=== PATIENT | male | born 1935 | race Caucasian/White ===

== ENCOUNTER → 2016-08-14 | Outpatient (CLI) | payer MEDICARE, OTHER | LOC: RAD 08:27 | PROVIDERS: ATTEND Physician Assistant | DX: R07.9 Chest pain, unspecified (principal); R91.1 Solitary pulmonary nodule | CPT/HCPCS: 71250 ==

== ENCOUNTER → 2017-01-07 | Outpatient (CLI) | payer MEDICARE, OTHER ==
--- NOTE | 2017-01-07 10:03 | ST Modified Barium Swallow ---
Recommendation - Recommendations Recommendations: Recommend thin liquids and regular diet. Patient may modify to comfort level. Small sips of liquids recommended, no direct treatment indicated at this time. Should patient's dysphagia worsen, treatment may be beneficial at that time. Medical Diagnoses - Medical Diagnoses Medical Diagnosis Description & ICD-10 Code(s): R13.10 dysphagia Other Medical Diagnoses/Co-Morbidities: vocal fold paralysis, dysphagia, GERD ST Modified Barium Swallow - General Date: 01/07/17 Referring Physician: Dr. Triplett Risks/Precautions: Falls, Aspiration Date of Onset: 12/26/16 - approximate date Reason for Referral: coughing with PO - History History obtained from: Patient, Other - EMR reviewed -: Medical - Pt states first having swallowing difficulty approximately a year ago after spinal surgery. States that this improved, but is now noticing some difficulty. Specifically cited incident at a dentist office choking on water, however, he was reclined for the procedure. The patient also has a history of vocal fold paralysis and reflux with upper hernia per patient report. He has previously received speech therapy to address vocal fold function. He had a previous MBSS in August of 2015, recommendations at that time were for regular diet and thin liquids. Some penetration of thin liquids seen at that time. Medications: Per previous EMR: Aspirin, Cetirizine, Fexofenadine, Metformin, Lisinopril, Levemir, NovoLOG, Sertraline, Sotalol, Rabeprazole, Lipitor. Patient personally stated being on lisinopril and prilosec this day. Allergies: seasonal allergies. no other allergies reported. - Functional Status Prior Functional Status: INDEPENDENT: feeding - independent Current Functional Limitations: feeding - difficulty with solids - Subjective Patient/caregiver goal(s): safe swallow, r/o aspiration Cognitive-Linguistic Function: WNL Speech Intelligibility: Age appropriate Current Nutritional Means: PO Current PO diet: Regular - Patient does state he avoids meat and cereals Current symptoms: Coughing Pain: 0/5 - Objective Assessment: Upright, Left Lateral - Food Trials Used Food trials used: Thin liquids, Pureed, Regular The patient: Was Able to Self Feed, via cup - Oral-Motor Skills Dentition: Full Laryngeal Function: Volitional Cough, Throat Clear, Volitional Swallow Oral Motor Skills: WFL - Assessment Oral prep: Normal Labial closure: Adequate Leakage: None Mastication: Adequate Lingual Movement: Normal Oral stage: Normal for this Procedure - Pharyngeal Stage Initiation of Pharyngeal Stage Reflex: Delayed Reflex Delay Time (Seconds): 1 Reduced pressure generation: No reduced tongue-based retraction: No Pre-swallow pooling in valleculae: Mild - with thin liquid trials Pre-Swallow pooling in pyriforms: None Reduced Thyro-Hyoid approximation: Yes - mild Reduced epiglottic excursion: No Reduced pharyngeal peristalsis/contraction: No Multiple Swallows with: Cleared w/ Dry Swallow Post-swallow residulas vallecular: Mild - for puree texture Pharyngeal Stage Comments: Good swallow function seen for solid textures. Some difficulty with thin liquids , small amount of penetration seen just prior to and during the swallow with multiple trials. Chin tuck helped reduce this. - Fall Risk Assessment Medications/Conditions that increase fall risks include: Antidepressants, sedatives, anti-arrhythmic, diuretic, benzodiazipenes, neuroleptics. BP regulation problems, cardiac problems, balance or gait deficits, neurological problems. Is patient considered at risk for falls: yes - walks with cane Fall Risk Actions Taken: No action needed - Behavioral Observations During evaluation process patient: was pleasant, was cooperative, able to answer questions, provided medical history Mental Status: Alert & Oriented X3 - Treatment / Educational Needs: Treatment/Education Needs: Treatment consisted of patient education on the role of the Speech Pathologist. Patient's plan of care and golas were communicated as well as scheduling and attendance policies. Recommendations for initial home program were shared. Patient demonstrated understanding and verbalized agreement. - Impression/Summary Laryngeal Penetration: Yes, Flash, before swallow, during swallow Consistency: Thin Tracheal Aspiration: no Productive cough: Yes Effective compensatory strategies: chin tuck, chin down Patient presents with: Pharyngeal stage dysph., Mild-Moderate Risk of Aspiration: Mild Risk of nutritional compromise: Mild Risk due to: penetration of liquids Evaluation and Findings: Results this day are very similar to results from previous MBSS from 2016. This indicates no significant decrease in swallow function. Mild penetration seen for thin liquids, however, no aspiration seen, and penetration cleared easily. - Recommendations Solid diet recommendations: Regular Liquid Diet Modification: Thin Dysphagia therapy with HAND IRONER: no Recommended techniques: Fully Upright During Meal, Small Bites and Sips, Chin Tuck to Swallow Supervision: Independent Information, Precautions and Recommendations: Patient (Written), Patient (Verbal ) - Time Total Time: 40 - Plan of Care Patient to follow-up with referring physician: Yes Strategies to optimize patient understanding include:: ongoing assessment of educational needs, implementation of educational strategies, and re-education. - - -: Thank you for the opportunity to work with this patient and his/her family. Should you have any questions about this patient's plan or progress, I can be reached at [phone]. Charge G Code? - - -: Yes ST F.L. Impairment Category - Swallowing Current G8996: CI 1-19% Impaired Goal G8997: CI 1-19% Impaired Discharge G8998: CI 1-19% Impaired - Voice Current G9171: None Goal G9172: None Discharge G9173: None
--- NOTE | 2017-01-07 13:29 | RADIOLOGY REPORT (SQ) ---
EXAM DESCRIPTION: COOKIE SWALLOW COMPLETED DATE/TIME: 01/07/2017 8:37 am REASON FOR STUDY: DYSPHAGIA (R13.10) R13.10 DYSPHAGIA, UNSPECIFIED COMPARISON: 09/05/2015 TECHNIQUE: Videofluoroscopic swallowing examination was performed in conjunction with speech patholo gy. Videofluoroscopic imaging was obtained and reviewed and these are the findings: RADIATION DOSE: 1.2 minutes Limited fluoroscopic images saved to PACS. LIMITATIONS: None FINDINGS: The patient was brought into the fluoro room and placed upright on a modified barium swall ow chair. The patient was then given multiple consistencies mixed with barium to swallow under live fluoroscopic video guidance. Patient had laryngeal penetration without definite subglottic aspiratio n on thin liquids. Patient tolerated thick liquids, pudding consistency, and a cookie coated in very screw without difficulty. IMPRESSION: Laryngeal penetration with thin liquids. Patient tolerated thicker consistencies.PLEASE SEE SPEECH PATHOLOGIST REPORT FOR OTHER FINDINGS AND RECOMMENDATIONS. COMMENT: Quality ID 145: Final reports for procedures using fluoroscopy that document radiation exp osure indices, or exposure time and number of fluorographic images (if radiation exposure indices are not available) TECHNICAL DOCUMENTATION: JOB ID: [id number] [employer]- All Rights Reserved
== END ==
LOC: RAD 07:55
PROVIDERS: ATTEND Internal Medicine
DX: R13.10 Dysphagia, unspecified (principal)
CPT/HCPCS: 74230; 92611; G8996; G8997; G8998

== ENCOUNTER → 2017-01-08 | Outpatient (CLI) | payer MEDICARE, OTHER ==
--- NOTE | 2017-01-08 10:47 | RADIOLOGY REPORT (SQ) ---
EXAM DESCRIPTION: CT CHEST WITHOUT COMPLETED DATE/TIME: 01/08/2017 9:34 am REASON FOR STUDY: PULMONARY NODULE (R91.1) R91.1 SOLITARY PULMONARY NODULE COMPARISON: CT chest without contrast 08/14/2016 TECHNIQUE: CT scan performed of the chest without intravenous contrast. Images reviewed with lung, soft tissue and bone windows. Reconstructed coronal and sagittal MPR images reviewed. All images st ored on PACS. All CT scanners at this facility use dose modulation, iterative reconstruction, and/or weight based d osing when appropriate to reduce radiation dose to as low as reasonably achievable (ALARA). [facility]: Dose Right [facility]: CareDose [facility]: Dose Right [facility]: Teradose 4D [facility]: [employer] RADIATION DOSE: Up-to-date CT equipment and radiation dose reduction techniques were employed. CTDIv ol: 10.2 mGy. DLP: 362 mGy-cm. mGy. LIMITATIONS: No technical limitations. FINDINGS: LUNGS AND PLEURA: On axial image 76, a 7 to 8 mm smooth round pleural-based nodule is pres ent unchanged from 08/14/2016. No other pulmonary nodules. No focal infiltrates. No pleural effusion. No pneumothorax. HILAR AND MEDIASTINAL STRUCTURES: No identified masses or abnormal nodes. No obvious aneurysm. Smal l retrocardiac hiatal hernia HEART AND VASCULAR STRUCTURES: Ascending aorta 4 cm in diameter, stable. . No pericardial effusion. UPPER ABDOMEN: No significant findings. Limited exam. THYROID AND OTHER SOFT TISSUES: No masses. No adenopathy. BONES: Diffuse ankylosis of the thoracic spine. HARDWARE: None in the chest. OTHER: No other significant findings. IMPRESSION: Stable 7 to 8 mm pleural-based smooth round noncalcified nodule left posterior costophre jessenia sulcus as compared to 08/14/2016 COMMENT: FLEISCHNER CRITERIA FOR FOLLOW-UP OF PULMONARY NODULES Incidentally detected new nodules in persons 35 or older. HIGH RISK: History of smoking or other known risk factors. 6-8mm single solid nodule: LOW RISK: CT 6-12 mo; then consider CT 18-24 mo. HIGH RISK: CT 6-12 mo; th en CT 18-[address] scanning follow-up in January 2018. TECHNICAL DOCUMENTATION: JOB ID: [id number] Quality ID # [id number]: Final reports with documentation of one or more dose reduction techniques (e.g., Au tomated exposure control, adjustment of the mA and/or kV according to patient size, use of iterative reconstruction technique) 2010 [employer]- All Rights Reserved
== END ==
LOC: RAD 09:13
PROVIDERS: ATTEND Internal Medicine Pulmonary Disease
DX: R91.1 Solitary pulmonary nodule (principal)
CPT/HCPCS: 71250

== ENCOUNTER → 2017-05-05 | Outpatient (CLI) | payer MEDICARE, OTHER ==
--- NOTE | 2017-05-05 14:06 | RADIOLOGY REPORT (SQ) ---
EXAM DESCRIPTION: BARIUM SWALLOW PHARYNX ONLY COMPLETED DATE/TIME: 05/05/2017 8:48 am REASON FOR STUDY: DYSPHAGIA (R13.10) R13.10 DYSPHAGIA, UNSPECIFIED COMPARISON: CT chest 08/14/2016, 01/08/2017 Video assisted swallowing study with speech pathology 01/07/2017 TECHNIQUE: Under fluoroscopic guidance, patient ingested effervescent granules followed by thick and thin barium. Fluoroscopic spot images and routine radiographic images acquired and stored on PACS. 12 MM BARIUM TABLET GIVEN: Yes. No significant delay in passage. LIMITATIONS: Patient swallowed only small mouthfuls FLUOROSCOPY TIME: FLUORO TIME: 2 minutes 9 series of digital images saved to PACS. FINDINGS: NEUROMUSCULAR COORDINATION OF SWALLOW: Throughout the study, there was silent subglottic a spiration of thin liquid barium. No cough response. ESOPHAGEAL MOTILITY: Prominent tertiary contractions. No spasm ESOPHAGEAL MUCOSA: Grossly normal GASTRO-ESOPHAGEAL JUNCTION: No sliding hiatal hernia. However, there was gastroesophageal reflux to the mid 3rd of the esophagus. No distal esophageal Schatzki's ring NON-GI TRACT STRUCTURES: Lower cervical fusion hardware OTHER: No other significant finding. IMPRESSION: Aspiration of thin and thick liquid barium which did not produce a cough response Gastroesophageal reflux to the mid 3rd of the esophagus Prominent tertiary contractions of the esophagus COMMENT: Quality ID 145: Final reports for procedures using fluoroscopy that document radiation exp osure indices, or exposure time and number of fluorographic images (if radiation exposure indices are not available) TECHNICAL DOCUMENTATION: JOB ID: [id number] [employer]- All Rights Reserved
== END ==
LOC: RAD 07:53
PROVIDERS: ATTEND Otolaryngology
DX: R13.10 Dysphagia, unspecified (principal)
CPT/HCPCS: 74210